=== PATIENT | male | born 1955 | race Caucasian/White ===

== ENCOUNTER 2017-03-06 19:00 | Emergency (ER) | payer SELFPAY ==
[2017-03-06 19:03] VITALS: BP 134/86; PULSE 86; RESP 16; TEMP 98.7; O2SAT 96
[2017-03-06] MEDS ORDERED: METF1000 PO (20:49)
[2017-03-06] MEDS ORDERED: insulin SQ (20:49)
[2017-03-06] MEDS ORDERED: POTA10TA2 PO (20:49)
[2017-03-06] MEDS ORDERED: blood pressure PO (20:49)
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
--- NOTE | 2017-03-06 21:07 | RADRPT ---
EXAM DATE/TIME: 03/06/2017 20:10 [facility] COMPARISON: No previous studies available for comparison. INDICATIONS : Cough, shortness of breath, and congestion. MEDICAL HISTORY : None. SURGICAL HISTORY : None. ENCOUNTER: Initial ACUITY: 2 weeks PAIN SCORE: 2/10 LOCATION: Bilateral chest FINDINGS: PA and lateral views of the chest demonstrate the lungs to be symmetrically aerated without evidence of mass, infiltrate or effusion. The cardiomediastinal contours are unremarkable. There is anterior cervical fusion plate at the lower cervical spine. There is an anterior wedging compression deformity at L1 as seen on the lateral view. The age of this deformity is not known. CONCLUSION: 1. No acute cardiothoracic process. 2. Anterior wedge deformity at the supra-acetabular one vertebral body. The age of this deformity is not known. Avni Salazar MD on March 06, 2017 at 21:04 Board Certified Radiologist. This report was verified electronically.
[2017-03-06] MEDS ORDERED: ZITHTAB PO (21:13)
== END 2017-03-06 21:59 | disposition home or self-care (01) ==
LOC: NEPD 19:00
DX: R05 Cough (principal); E11.9 Type 2 diabetes mellitus without complications; I10 Essential (primary) hypertension
CPT/HCPCS: 71020; 99283